=== PATIENT | female | born 1980 | race Caucasian/White ===

== ENCOUNTER 2023-02-17 13:13 | Outpatient (CLI) | payer BC | END 2023-02-17 13:14 | disposition home or self-care (01) | LOC: DTY/OP 13:13 | PROVIDERS: ATTEND Surgery | DX: E66.01 Morbid (severe) obesity due to excess calories (principal) | CPT/HCPCS: 97802 ==

== ENCOUNTER 2023-04-29 08:00 | Inpatient (IN) | payer BC ==
[2023-05-04] MEDS ORDERED: Sodium Chloride 0.9% 100 ML ONE (07:59)
[2023-05-04] MEDS ORDERED: Heparin 5,000 UNITS/ML VIAL ONE (07:59)
[2023-05-04] MEDS ORDERED: CEFAZOLIN 2 GM VIAL ONE (07:59)
[2023-05-04] MEDS ORDERED: EPINEPHrine 1 MG/ML VIAL ONE (08:18)
[2023-05-04] MEDS ORDERED: Bupivacaine 0.25% HCL 30 ML VIAL ONE (08:18)
[2023-05-04] MEDS ORDERED: SUGAMMADEX SODIUM 200 MG/2 ML VIAL ONE (09:02)
[2023-05-04] MEDS ORDERED: KETAMINE 100 MG/ML (5ML VIAL) ONE (09:03)
[2023-05-04] MEDS ORDERED: fentaNYL PF 100 MCG/2 ML SYRINGE ONE (09:03)
[2023-05-04] MEDS ORDERED: Propofol 500 MG/50 ML VIAL ONE (09:03)
[2023-05-04] MEDS ORDERED: NEOSTIGMINE 3 MG/3 ML SYR 3 MG/3 ML SYRINGE ONE (09:32)
[2023-05-04] MEDS ORDERED: Rocuronium Bromide 10 MG/ML (10ML VIAL) ONE (09:32)
[2023-05-04] MEDS ORDERED: Dexamethasone 20 MG/5 ML VIAL ONE (09:32)
[2023-05-04] MEDS ORDERED: Glycopyrrolate 0.2 MG/ML 5 ML SYRINGE ONE (09:32)
[2023-05-04] MEDS ORDERED: Ondansetron PF 4 MG/2 ML Vial ONE ×2 (09:32→11:14)
[2023-05-04] MEDS ORDERED: Ketorolac Tromethamine 30 MG/ML VIAL ONE (09:32)
[2023-05-04] MEDS ORDERED: Lidocaine 1% PF 5 ML VIAL ONE (09:32)
[2023-05-04] MEDS ORDERED: PROPOFOL 200 MG/20 ML VIAL ONE (09:32)
[2023-05-04] MEDS ORDERED: Labetalol HCl 100 MG/20 ML VIAL ONE (09:32)
[2023-05-04] MEDS ORDERED: FENTANYL 500 MCG/10 ML VIAL 2,000 MCG in Sodium Chloride 0.9% 60 ML IV PRN (10:01)
[2023-05-04] MEDS ORDERED: Ondansetron PF 4 MG/2 ML Vial IVP PRN ×2 (10:01→10:41)
[2023-05-04] MEDS ORDERED: diphenhydrAMINE 50 MG/ML VIAL IM PRN (10:01)
[2023-05-04] MEDS ORDERED: diphenhydrAMINE 25 MG CAP PO PRN (10:01)
[2023-05-04] MEDS ORDERED: Naloxone HCl 0.4 mg/ml Vial IV PRN (10:01)
[2023-05-04] MEDS ORDERED: diphenhydrAMINE 50 MG/ML VIAL IVP PRN ×2 (10:01→10:41)
[2023-05-04] MEDS ORDERED: Promethazine HCl 25 MG/ML VIAL IM PRN ×3 (10:01→10:41)
[2023-05-04] MEDS ORDERED: Ondansetron HCl/PF 4 MG/2 ML Vial IVP PRN (10:01)
[2023-05-04] MEDS ORDERED: Communication Order-Pharmacy FS SCH (10:15)
[2023-05-04] MEDS ORDERED: Ipratropium/Albuterol 3 ML NEB NEB PRN (10:41)
[2023-05-04] MEDS ORDERED: Dextrose 5% in Water 1,000 ML IV PRN (10:41)
[2023-05-04] MEDS ORDERED: hydrALAZINE 20 MG/ML VIAL SLOW IVP PRN (10:41)
[2023-05-04] MEDS ORDERED: Glucagon 1 MG/ML KIT IM PRN (10:41)
[2023-05-04] MEDS ORDERED: Dextrose 50% Abboject 50 ML SYRINGE SLOW IVP PRN (10:41)
[2023-05-04] MEDS ORDERED: fentaNYL 50 mcg/mL 1 mL Vial ONE (11:00)
[2023-05-04] MEDS ORDERED: Mometasone 200 MCG/Formoterol 5 MCG 120 PUFF INHALER INH PRN (11:07)
[2023-05-04] MEDS ORDERED: Fentanyl CADD 100 ML IVPB PRN (11:08)
[2023-05-04 15:12] VITALS: BMI 51.7
[2023-05-04] MEDS: D5 1/2 NS w/20 mEq KCL 1,000 ML IV SCH ×2 (15:13→18:10)
[2023-05-05] MEDS: D5 1/2 NS w/20 mEq KCL 1,000 ML IV SCH ×2 (04:41→08:31)
[2023-05-05] MEDS: Hydrocodone-Acetamin 15 ML UDCUP PO PRN ×2 (04:46→08:26)
[2023-05-05 05:43] LABS: #Monocytes 0.8 thou/uL (0.11-0.59); #Neutrophils 9.1 thou/uL (1.40-6.50); %Basophils 0.1 % (0.0-1.0); %Monocytes 7.4 % (0.0-10.0); %Neutrophils 80.2 % (42.0-75.0); Hematocrit 39.4 % (36.0-47.0); Mean Corpuscular Hemoglobin 30.2 pg (27.0-31.0); Mean Corpuscular Volume 91.4 fl (78.0-98.0); Mean Platelet Volume 9.8 fL (7.4-10.4); Platelet Count 234 10x3/uL (130-400); RBC Distribution Width 13.2 % (11.5-14.5); Red Blood Cell (RBC) Count 4.31 mill/uL (4.20-5.40); White Blood Cell (WBC) Count 11.3 10x3/uL (4.8-10.8)
[2023-05-05 06:12] LABS: Anion Gap 13 mmol/L (10-20); BUN (Urea Nitrogen) 10 mg/dL (7.0-18.7); Calc. Creatinine Clearance 191 mL/min (70-130); Calcium 8.4 mg/dL (7.8-10.44); Carbon Dioxide 25 mmol/L (22-29); Chloride 104 mmol/L (98-107); Estimated GFR 98; Glucose 87 mg/dL (70-105); Potassium 4.1 mmol/L (3.5-5.1); Sodium 138 mmol/L (136-145)
[2023-05-05 08:57] VITALS: BP 156/98; TEMP 97.8
[2023-05-05] MEDS ORDERED: Pantoprazole 40 MG VIAL IVP SCH (09:00)
== END 2023-05-05 11:44 | disposition home or self-care (01) | DRG 621 ==
LOC: SURG A 05-04 06:57 → SURG B 05-04 14:13
PROVIDERS: ADMIT Surgery; ATTEND Surgery
PROC: 0DB64Z3 Excision of Stomach, Percutaneous Endoscopic Approach, Vertical (ICD-10-PCS; principal; 2023-05-04)
PROC: 8E0W4CZ Robotic Assisted Procedure of Trunk Region, Percutaneous Endoscopic Approach (ICD-10-PCS; 2023-05-04)
DX: E66.01 Morbid (severe) obesity due to excess calories (principal); Z68.43 Body mass index [BMI] 50.0-59.9, adult; Z79.899 Other long term (current) drug therapy; Z87.891 Personal history of nicotine dependence
CPT/HCPCS: 36415; 80048; 85025; 88307; 94760; C9113; J0171; J1100; J1644; J1650; J1885; J2405; J2704; J3010; J3480; J3490; S0020

== ENCOUNTER 2023-04-29 08:18 | Outpatient (CLI) | payer BC ==
[2023-04-29 09:51] LABS: #Eosinphils 0.1 10x3/uL (0.0-0.5); #Monocytes 0.4 10x3/uL (0.0-1.1); #Neutrophils 3.8 10x3/uL (1.5-8.4); %Basophils 0.2 % (0.0-2.0); %Eosinophils 1.4 % (0.0-6.0); %Lymphocytes 21.8 % (18.0-47.0); %Monocytes 7.6 % (0.0-10.0); %Neutrophils 68.6 % (40.0-75.0); Hematocrit 41.4 % (34.9-44.5); Mean Corpuscular HGB CONC 33.8 g/dL (32.0-36.0); Mean Corpuscular Hemoglobin 30.1 pg (27.0-33.0); Mean Platelet Volume 9.7 fl (7.4-10.4); Platelet Count 251 10x3/uL (150-450); RBC Distribution Width 12.5 % (11.5-14.5); Red Blood Cell (RBC) Count 4.65 10x6/uL (3.90-5.03); White Blood Cell (WBC) Count 5.5 10x3/uL (3.5-10.5)
[2023-04-29 09:56] LABS: Anion Gap 14 mmol/L (10-20); BUN (Urea Nitrogen) 16 mg/dL (7.0-18.7); Calc. Creatinine Clearance 0 mL/min (70-130); Calcium 8.9 mg/dL (7.8-10.44); Carbon Dioxide 26 mmol/L (22-29); Chloride 103 mmol/L (98-107); Estimated GFR 106; Glucose 80 mg/dL (70-105); Potassium 4.6 mmol/L (3.5-5.1); Sodium 138 mmol/L (136-145)
== END 2023-04-29 08:19 | disposition home or self-care (01) ==
LOC: LABBT 08:18
PROVIDERS: ATTEND Surgery
DX: Z01.818 Encounter for other preprocedural examination (principal); E66.01 Morbid (severe) obesity due to excess calories
CPT/HCPCS: 80048; 85025; 93005; 93010